=== PATIENT | male | born 1980 | race Caucasian/White ===

== ENCOUNTER 2020-09-25 22:47 | Emergency (ER) | payer OTHER ==
[~2020-09-25] VITALS: Ht 180.3 cm; Wt 95.3 kg
[~2020-09-25 22:47] MED LIST: ZOFRAN ODT4 MG PO
[2020-09-26 00:19] VITALS: BP 169/111
== END 2020-09-26 00:20 | disposition home or self-care (01) ==
LOC: M.ERS 22:47
DX: S01.511A Laceration without foreign body of lip, initial encounter (principal); Z88.8 Allergy status to other drugs, medicaments and biological substances; W22.8XXA Striking against or struck by other objects, initial encounter; Y93.89 Activity, other specified; Y92.89 Other specified places as the place of occurrence of the external cause; Y99.8 Other external cause status